=== PATIENT | female | born 1960 ===

== ENCOUNTER 2021-03-06 11:30 | Inpatient (IN) | payer OTHER ==
[~2021-03-06] VITALS: Ht 165.1 cm; Wt 104.3 kg
[2021-03-11] MEDS ORDERED: KEPPRA500 MG PO (09:01)
[2021-03-11] MEDS ORDERED: LAMOTRIGINE100 MG PO (09:02)
[2021-03-11] MEDS ORDERED: LEVOTHYROXINE100 MC1 PO (09:03)
[2021-03-11] MEDS ORDERED: SIMVASTA PO (09:03)
[2021-03-11] MEDS ORDERED: ESCITALOPRAM PO (09:03)
[2021-03-11] MEDS ORDERED: ALL DAY ALLERGY10 M3 PO (09:04)
[2021-03-11] MEDS ORDERED: CHILDREN'S ASPI81 MG PO (09:05)
[2021-03-11] MEDS ORDERED: NASAL MIST126 ML (09:17)
[2021-04-11] MEDS ORDERED: VITAMIN D31250 MCG (08:19)
[2021-04-11] MEDS ORDERED: SIMVASTATIN40 MG (08:19)
[2021-04-11] MEDS ORDERED: ESCITALOPRAM OX20 MG (08:19)
== END 2021-04-12 12:58 | disposition home or self-care (01) | DRG 741 ==
LOC: OB/GYN 03-12 09:15 → O/R 04-10 07:09 → OB/GYN 04-10 07:09
PROVIDERS: ADMIT Specialist; ATTEND Specialist
PROC: 0UT20ZZ Resection of Bilateral Ovaries, Open Approach (ICD-10-PCS; 2021-04-10)
PROC: 0UT70ZZ Resection of Bilateral Fallopian Tubes, Open Approach (ICD-10-PCS; 2021-04-10)
PROC: 07BC0ZZ Excision of Pelvis Lymphatic, Open Approach (ICD-10-PCS; 2021-04-10)
PROC: 0UT90ZZ Resection of Uterus, Open Approach (ICD-10-PCS; principal; 2021-04-10 17:00)
DX: C54.1 Malignant neoplasm of endometrium (principal); N85.00 Endometrial hyperplasia, unspecified; N83.292 Other ovarian cyst, left side; N83.291 Other ovarian cyst, right side; E03.9 Hypothyroidism, unspecified

== ENCOUNTER 2021-04-09 09:30 | Outpatient (CLI) | payer OTHER ==
[~2021-04-09 09:30] MED LIST: ALL DAY ALLERGY10 M3 PO; CHILDREN'S ASPI81 MG PO; ESCITALOPRAM PO; KEPPRA500 MG PO; LAMOTRIGINE100 MG PO; LEVOTHYROXINE100 MC1 PO; NASAL MIST126 ML; SIMVASTA PO
== END 2021-04-09 10:40 | disposition home or self-care (01) ==
LOC: LAB 09:30
PROVIDERS: ATTEND Specialist
DX: I10 Essential (primary) hypertension (principal); D68.8 Other specified coagulation defects; N39.0 Urinary tract infection, site not specified; D69.49 Other primary thrombocytopenia; N95.1 Menopausal and female climacteric states; K76.89 Other specified diseases of liver; G47.01 Insomnia due to medical condition; G47.09 Other insomnia